=== PATIENT | male | born 1960 | race African-American/Black ===

== ENCOUNTER 2023-03-19 13:11 | Outpatient (AMB) | payer OTHER, SELFPAY ==
--- NOTE | 2023-03-19 13:22 | AM.OFFWIN_ITS ---
Intake Vital Signs 03/19/23 13:27 Height 5 ft 9.5 in Weight 275 lb 6 oz BMI 40.1 BP 118/78 Blood Pressure Location Rt brachial Position Sitting Pulse 78 Pulse Source Pulse Oximeter Temp 97.9 F Temp Source Temporal Artery Scan Pulse Oximetry (%) 98 Oxygen Delivery Method Room Air Intake Visit Reasons: EP Twisted Lft Knee slight swelling Intake Note: pt is here for c/o twisted left knee with slight swelling Patient Tobacco Use Status: Never used Tobacco Allergies No Known Allergies [No Known Allergies*] Allergy (Verified 03/19/23 13:23) Do you need a note to return to daycare/school/sports/work: Yes HPI EP Twisted Lft Knee slight swelling HPI Details 62-year-[facility]. He reports that yesterday, he was walking down his driveway to get his trash barrel, and his left knee slightly gave out. Following this, he has had some pain on the front of his knee, and his knee has given out another 2-3 times. He is able to bear weight. He denies hearing any popping or clicking sounds/sensations. [facility] Social History Patient Tobacco Use Status: Never used Tobacco Review of Systems Const All systems reviewed & are unremarkable except as noted in HPI and below Physical Exam Vital Signs: Last Vital Signs Temp 97.9 F 03/19/23 13:27 Pulse 78 03/19/23 13:27 BP 118/78 03/19/23 13:27 Pulse Ox 98 03/19/23 13:27 Oxygen Delivery Method Room Air 03/19/23 13:27 BMI result Body Mass Index 40.1 Const General: cooperative, healthy appearing, comfortable and no acute distress Resp Effort & Inspection: normal respiratory effort Skin General skin exam: no rashes or lesions noted Extrem General: Yes capillary refill normal and Yes no clubbing, cyanosis or edema Left lower extremity: normal capillary refill and knee Details: tenderness Location: of the tibial tuberosity and abnormal ROM (Pain with full extension, ligament exam appears normal) Psych Appearance: grossly normal Mental Status: mental status grossly normal Speech and movement: Normal speech and movement present Assessment & Plan Assessment & Plan (1) Left knee injury: Code(s): S89.92XA - Unspecified injury of left lower leg, initial encounter Qualifiers: Encounter type: initial encounter Qualified Code(s): S89.92XA - Unspecified injury of left lower leg, initial encounter Plan: Likely sprain of left knee. Ligament exam appears normal at this time however he has some intermittent sensation of knee giving out , and some mild pain at left tibial tuberosity. Advised rest, ice, elevation, and I will start him on a short course of Meloxicam. We reviewed indications, use, possible side effects of this medication. He has seen orthopedics at [facility] previously for biceps tear, and I advised him to follow-up with them or PCP if symptoms in his left knee do not improve with time and conservative measures, or certainly if they worsen or new symptoms develop. He verbalizes understanding and agrees to plan. Work note provided. Medications: New meloxicam 15 mg PO DAILY 7 tabs 0RF 7 days S89.92XA - Unspecified injury of left lower leg, initial encounter Coding Level of Care Code Est Pt Level 4 (30797) Diagnoses Injury of left knee, initial encounter S89.92XA Encounter type: initial encounter
[2023-03-19 13:27] VITALS: BP 118/78; PULSE 78; TEMP 36.6; O2SAT 98; BMI 40.1
== END 2023-03-19 14:03 | disposition home or self-care (01) ==
PROVIDERS: PCP Family Medicine; Visit Provider Nurse Practitioner Family
DX: S89.92XA Unspecified injury of left lower leg, initial encounter (principal)
CPT/HCPCS: 99214

== ENCOUNTER 2023-12-07 10:55 | Outpatient (AMB) | payer OTHER, SELFPAY ==
--- NOTE | 2023-12-07 12:16 | AM.OFFWIN_ITS ---
Intake Vital Signs 12/07/23 12:17 Height 5 ft 9.5 in Weight 276 lb BMI 40.2 BP 112/76 Blood Pressure Location Rt radial Position Sitting Pulse 67 Pulse Source Pulse Oximeter Temp 98.2 F Temp Source Oral Pulse Oximetry (%) 97 Oxygen Delivery Method Room Air Intake Visit Reasons: Left Ankle, pain and swelling [phone] Intake Note: pt c/o LT ankle pain and swelling. Started 1 week ago. Did not injure to knowledge Patient Tobacco Use Status: Never used Tobacco Allergies No Known Allergies [No Known Allergies*] Allergy (Verified 12/07/23 12:17) Do you need a note to return to daycare/school/sports/work: No HPI HPI Comments History of Present Illness Details Patient presents to the walk-in today for sick visit Complaining of left ankle swelling and pain for last 1 week Denies injury Has been taking ibuprofen with minimal improvement Active at the gym, has been using the stationary bike more than normal [facility] Social History Patient Tobacco Use Status: Never used Tobacco Review of Systems Const All systems reviewed & are unremarkable except as noted in HPI and below Physical Exam Vital Signs: Last Vital Signs Temp 98.2 F 12/07/23 12:17 Pulse 67 12/07/23 12:17 BP 112/76 12/07/23 12:17 Pulse Ox 97 12/07/23 12:17 Oxygen Delivery Method Room Air 12/07/23 12:17 BMI result Body Mass Index 40.2 General: awake, alert, oriented. Answers questions appropriately. Fully engaged in examination. Skin: warm, dry, intact HEENT: Normocephalic. Hearing intact. Cardiac: External chest normal in appearance. Respiratory: No cough, audible wheezing or stridor. Abdomen: without gross distension. MS: No obvious swelling or deformities. Left ankle swelling, most notable over lateral malleolus. Tenderness to palpation. Pain with rotation. Neurological: Oriented to person, place, time and situation. Thought process intact. No gait abnormalities appreciated. Psychiatric: Appropriate mood and affect. Good judgment and insight. Assessment & Plan Assessment & Plan (1) Left ankle pain: Code(s): M25.572 - Pain in left ankle and joints of left foot Plan X-ray ordered, patient states he has to go to work. He will return tomorrow to the x-ray completed. Continue with steroidal anti-inflammatory medications. Offered prescription but patient declined Jc wrap applied. Patient advised on use Return here for tomorrow for x-ray. Orders: Orders XR ankle LT min 3V Today M25.572 - Pain in left ankle and joints of left foot Coding Level of Care Code Est Pt Level 3 (00840) Diagnoses Left ankle pain M25.572
[2023-12-07 12:17] VITALS: BP 112/76; PULSE 67; TEMP 36.8; O2SAT 97; BMI 40.2
== END 2023-12-07 13:16 | disposition home or self-care (01) ==
PROVIDERS: PCP Family Medicine; Visit Provider Registered Nurse Emergency
DX: M25.572 Pain in left ankle and joints of left foot (principal)
CPT/HCPCS: 99213

== ENCOUNTER 2023-12-08 08:33 | Outpatient (REF) | payer OTHER, SELFPAY ==
--- NOTE | ~2023-12-08 | XR_ITS ---
EXAMINATION: XR ANKLE, LEFT CLINICAL INFORMATION: Pain in left ankle and joints of left foot. COMPARISON: None available. TECHNIQUE: AP, lateral, and mortise views of the left ankle. FINDINGS: Soft tissue swelling at the ankle. Ankle joint effusion. Ankle mortise is maintained. Subtle lucencies in the subchondral region along the lateral aspect of the talar dome of uncertain etiology, although osteochondritis dissecans should also be considered in the differential. Faint calcific/ossific foci just inferior to the medial malleolus of indeterminate age and etiology. Prominent plantar calcaneal spur. XR/XR ankle LT min 3V IMPRESSION: Subtle lucencies in the subchondral region along the lateral aspect of the talar dome of uncertain etiology, although osteochondritis dissecans should also be considered in the differential. Faint calcific/ossific foci just inferior to the medial malleolus of indeterminate age and etiology. This study was presented today, December 08, 2023, for interpretation. Stat results provided at this time as requested by referring provider.
== END 2023-12-08 08:34 | disposition home or self-care (01) ==
LOC: HO.HMGCX 08:33
PROVIDERS: PCP Family Medicine; Visit Provider Registered Nurse Emergency
DX: M25.572 Pain in left ankle and joints of left foot (principal)
CPT/HCPCS: 73610